=== PATIENT | female | born 1990 | race African-American/Black ===

== ENCOUNTER 2022-01-24 17:36 | Emergency (ER) | payer OTHER ==
[~2022-01-24] VITALS: Ht 180.3 cm; Wt 108.9 kg
== END 2022-01-24 18:20 | disposition home or self-care (01) ==
LOC: ER 18:05
DX: S50.12XA Contusion of left forearm, initial encounter (principal); Y04.1XXA Assault by human bite, initial encounter; Y92.89 Other specified places as the place of occurrence of the external cause
CPT/HCPCS: 99282